=== PATIENT | male | born 1990 | race African-American/Black ===

== ENCOUNTER 2018-02-21 17:32 | Emergency (ER) | payer SELFPAY ==
[~2018-02-21] VITALS: Ht 170.2 cm; Wt 65.6 kg
[~2018-02-21 17:32] MED LIST: TRAMADOL HCL50 MG PO
[2018-02-21 19:14] VITALS: BP 129/75
== END 2018-02-21 19:14 | disposition home or self-care (01) ==
LOC: EME 17:32 → EXP 17:32
PROC: 0JQ70ZZ Repair Back Subcutaneous Tissue and Fascia, Open Approach (ICD-10-PCS; principal; 2018-02-21)
DX: S21.212A Laceration without foreign body of left back wall of thorax without penetration into thoracic cavity, initial encounter (principal); Y00.XXXA Assault by blunt object, initial encounter
CPT/HCPCS: 99281; 99285